=== PATIENT | female | born 1990 | race Caucasian/White ===

== ENCOUNTER 2023-09-19 18:20 | Emergency (ER) | payer MEDICAID, SELFPAY ==
--- NOTE | ~2023-09-19 | CT_ITS ---
EXAMINATION: CT ABDOMEN AND PELVIS WITH CONTRAST CLINICAL INFORMATION: Left-sided abdominal pain, vomiting and diarrhea. COMPARISON: None available. TECHNIQUE: Multidetector volumetric images were obtained from the superior aspect of the liver through the pubic symphysis following administration 85 mL of Omnipaque 350 intravenous contrast. Sagittal and coronal reformatted images were obtained on the technologist's workstation. Oral contrast: No. This CT examination was performed using dose optimization techniques as appropriate, variously including the following: Automated exposure control. Adjustment of mA and/or kV according to patient size (this includes techniques or standardized protocols for targeted exams where dose is matched to indication/reason for exam; i.e. extremities or head). Use of iterative reconstruction technique. DLP: 368 mGy-cm. FINDINGS: LUNG BASES: The visualized lung bases are unremarkable. LIVER, GALLBLADDER, AND BILIARY TREE: The liver is normal in size, shape, and attenuation. No focal hepatic lesion or biliary ductal dilatation is present. The gallbladder is unremarkable with no evidence of radiopaque gallstones, gallbladder wall thickening, or obvious pericholecystic inflammatory changes. PANCREAS: Unremarkable. SPLEEN: Unremarkable. ADRENAL GLANDS: Unremarkable. KIDNEYS AND URETERS: The kidneys are normal in size, shape, and attenuation. No hydronephrosis, hydroureter, or calculi seen. No perinephric stranding. BLADDER: Unremarkable. GASTROINTESTINAL TRACT: There is diffuse mural thickening involving the entire ascending and right transverse colon, likely colitis. The left transverse and descending colon is normal. Ileocecal junction and the terminal ileum appear normal. Appendix is not seen with certainty. ABDOMINAL WALL: No significant hernia is appreciated. LYMPH NODES: Numerous lymph nodes are seen in the right ileocecal mesentery, largest measuring 8 mm on axial slice 48/3. VASCULAR: Unremarkable. PELVIC VISCERA: There is a small amount of free fluid in the pelvis. There are multiple left ovarian cysts, largest measuring 2.3 x 2.7 cm, axial slice 59/3. The uterus is anteverted and appears unremarkable. There is a small right ovarian cyst measuring 1.5 x 1.8 cm. OSSEOUS STRUCTURES: Unremarkable. CT/CT abdomen pelvis w IV con IMPRESSION: 1. Diffuse mural thickening ascending and right transverse colon suggestive of colitis. Appendix is not seen. No bowel obstruction seen. 2. Bilateral ovarian cysts. 3. Small amount of free fluid in the cul-de-sac. Fleischner guidelines were followed.
[2023-09-19 18:27] VITALS: BP 140/90; PULSE 70; O2SAT 98
[2023-09-19 18:32] VITALS: BMI 23.4
[2023-09-19 18:38] VITALS: BP 127/65; PULSE 75; RESP 24; O2SAT 100
[2023-09-19 19:00] LABS: MANUAL DIFF FLAG NO
[2023-09-19 19:02] LABS: Basophils Percent Auto 0.1 % (0-2); Eosinophils Absolute Auto 0.2 X10*3/uL (0.0-0.4); Eosinophils Percent Auto 2.4 % (0-4); Hematocrit 40.3 % (37.0-47.0); Hemoglobin 14.1 g/dl (12.0-16.0); Imm Gran Abs Auto 0.02 X10*3/uL (0.00-0.03); Imm Gran Pct Auto 0.3 % (0.0-0.4); Lymphocytes Absolute Auto 1.5 X10*3/uL (1.2-4.9); Mean Corpuscular Hemoglobin 32.6 pg (27.0-33.0); Mean Corpuscular Volume 93.3 fL (80.0-98.0); Mean Platelet Volume 10.5 fL (9.4-12.3); Monocytes Absolute Auto 0.5 X10*3/uL (0.1-1.2); Monocytes Percent Auto 6.5 % (2-11); Neutrophils Absolute Auto 4.8 x10*3/uL (2.0-8.3); Neutrophils Percent Auto 69.7 % (45-73); Platelet Count 257 X10*3/uL (160-400); Red Blood Count 4.32 X10*6/uL (4.20-5.50); Red Cell Distribution Width 11.7 % (11.0-16.0)
--- NOTE | 2023-09-19 19:16 | ED.ABDPAIN ---
HPI - Abdominal Pain General Chief Complaint: Abdominal Pain Stated Complaint: ABD pain Time Seen by Provider: 09/19/23 19:09 Source: patient Mode of arrival: EMS Limitations: no limitations History of Present Illness HPI narrative: 33 yo female with no sig PMH no surgeries developed L sided abdominal pain with n/v/d no fevers starting at work yesterday. She notes this has never happened before. no travel, food exposures or sick contacts. MD elicited complaint: abdominal pain Pertinent past history: none Onset (ago): day(s) (1) Pain Consistency: constant Location: LUQ Severity: severe Quality: stabbing Radiation: none Migration to: no migration Exacerbating factors: movement Relieving factors: nothing Associated symptoms: nausea, vomiting and diarrhea Related Data Allergies Allergy/AdvReac Type Severity Reaction Status Date / Time No Known Allergies Allergy Verified 09/19/23 18:34 Review of Systems Review of Systems Constitutional : No Weight loss, No Fever, No Chills ENT/Mouth : No sore throat, No Rhinorrhea Eyes: No Swelling, No Redness Cardiovascular : No Chest Pain, No SOB, NoEdema Respiratory : No Cough, No Sputum, No Wheezing Gastrointestinal : Positive Nausea, Positive Vomiting, positive Diarrhea, positive abdominal Pain, No Hematochezia, No Melena Genitourinary : No Dysuria, No Urinary Frequency, No Hematuria, No Urgency Musculoskeletal : No joint pain, No Myalgias, No Joint Swelling Skin : No Skin Lesions, No rash Neuro : No Weakness, No Numbness, No Dizziness, No Headache Psych : No Anxiety/Panic, No Depression Heme/Lymph: No Bruising, No Lymphadenopathy Endocrine : No Polyuria, No Polydipsia All other systems reviewed and are negative. [facility] Past Medical History Medical History No pertinent past medical history Social History Social History (Updated 09/19/23 @ 19:31 by Sariah Rocha DO) Patient Tobacco Use Status: Never used Tobacco Smoked in Last 30 Days: No Use of substances other than those prescribed or required for medical reasons: Yes Substance Use Type: Marijuana Advance Directives: No Physical Exam ED Vital Signs: Vital Signs - 24 hr 09/19/23 18:38 09/19/23 20:54 Temperature 97.8 F Pulse Rate 75 76 Respiratory Rate 24 H 16 Blood Pressure 127/65 Pulse Oximetry 100 99 Oxygen Delivery Method Room Air Room Air BMI result Body Mass Index 23.4 Appearance: Alert. Oriented X3. anxious in pain mild acute distress. Eyes: Pupils equal, round and reactive to light. ENT: Pharynx normal. Neck: Normal inspection. Neck supple. CVS: Normal heart rate and rhythm. Pulses normal. Respiratory: No respiratory distress. Breath sounds normal. Abdomen: Soft and moderate ttp in LUQ and L flank Skin: Skin warm and dry. Normal skin color. Normal skin turgor. Extremities: No lower extremity edema. Neuro: Oriented X 3. No motor deficit. No sensory deficit. Course Course Course Narrative: signed out to Dr. Ames pending CT scan Medical Decision Making Medical Decision Making MDM Narrative: 33 yo female with no medical or surgical history here with LUQ pain and L flank pain with n/v/d that is severe at this time she denies risk factors and has never had this before. She does smoke THC. Will need basic labs, CT scan for renal colic, mass, colitis. IV toradol/morphine for pain. Differential Diagnosis Differential Diagnoses: The differential diagnosis associated with the presentation includes gastritis, renal colic, colitis, viral infection, ovarian cyst, THC induced symptoms Admission/Observation Consideration of admission/observation: Escalation of care including admission/observation considered Lab Data [facility] Lab Attestation statement: I reviewed the patient's lab results. 09/19/23 18:56 09/19/23 18:56 Labs: Lab Results 09/19/23 09/19/23 Range/Units 18:56 20:51 WBC 7.0 (4.8-10.8) X10*3/uL RBC 4.32 (4.20-5.50) X10*6/uL Hgb 14.1 (12.0-16.0) g/dl Hct 40.3 (37.0-47.0) % MCV 93.3 (80.0-98.0) fL MCH 32.6 (27.0-33.0) pg MCHC 35.0 (31.0-35.0) g/dl RDW 11.7 (11.0-16.0) % Plt Count 257 (160-400) X10*3/uL MPV 10.5 (9.4-12.3) fL Immature Gran % (Auto) 0.3 (0.0-0.4) % Neut % (Auto) 69.7 (45-73) % Lymph % (Auto) 21.0 (20-40) % [place] % (Auto) 6.5 (2-11) % Eos % (Auto) 2.4 (0-4) % Baso % (Auto) 0.1 (0-2) % Lymph # (Auto) 1.5 (1.2-4.9) X10*3/uL [place] # (Auto) 0.5 (0.1-1.2) X10*3/uL Eos # (Auto) 0.2 (0.0-0.4) X10*3/uL Baso # (Auto) 0.0 (0.0-0.2) X10*3/uL Abs Immat Gran (auto) 0.02 (0.00-0.03) X10*3/uL Absolute Neuts (auto) 4.8 (2.0-8.3) x10*3/uL Absolute Nucleated RBC 0.000 (0.0-0.012) X10*3/uL Nucleated RBC % (auto) 0.0 (0.0-0.2) /100WBC Sodium 139 (135-145) mmol/L Potassium 3.6 (3.3-5.1) mmol/L Chloride 109 H (96-108) mmol/L Carbon Dioxide 19 L (22-29) mmol/L Anion Gap 15 (12-20) BUN 7 L (9-16) mg/dL Creatinine 0.76 (0.5-1.4) mg/dL Estim Creat Clear Calc 88.7 Estimated GFR > 60 Random Glucose 114 (60-115) mg/dL Calcium 9.4 (8.4-10.2) mg/dL Total Bilirubin 0.5 (0.0-1.0) mg/dL Direct Bilirubin 0.1 (0.0-0.5) mg/dL AST 20 (5-31) U/L ALT 13 (0-31) U/L Alkaline Phosphatase 71 (39-117) U/L Total Protein 7.7 (6.5-8.0) g/dL Albumin 3.9 (3.5-5.0) g/dL Lipase 17 (8-78) U/L Urine Color Yellow Urine Appearance Clear Urine pH >= 9.0 (5.0-9.0) Ur Specific Serafina 1.015 (1.005-1.025) Urine Protein Trace (Neg-Trace) mg/dL Urine Glucose (UA) Negative (Negative) mg/dL Urine Ketones 15 (Negative) mg/dL Urine Blood Negative (Negative) Urine Nitrite Negative (Negative) Ur Leukocyte Esterase Negative (Negative) Urine Test NEGATIVE (NEGATIVE) Urine Opiates Screen POSITIVE H (Not Detect) Urine Fentanyl Screen Not Detected (Not Detect) Ur Barbiturates Screen Not Detected (Not Detect) Ur Phencyclidine Scrn Not Detected (Not Detect) Ur Amphetamines Screen Not Detected (Not Detect) U Benzodiazepines Scrn Not Detected (Not Detect) Urine Cocaine Screen Not Detected (Not Detect) U Marijuana (THC) Screen POSITIVE H (Not Detect) Independent Interpretation I performed an independent interpretation of an: CT Scan Radiology Impression Discussion of test interpretation with radiology: I have reviewed the radiologist's reading. Independent Historian Clinical information obtained from an independent historian. History obtained from or confirmed by: EMS Medications Administered Discontinued Medications Generic Name Dose Route Start Last Admin Trade Name Freq PRN Reason Stop Dose Admin Sodium Chloride 1,000 mls @ 999 mls/hr 09/19/23 19:30 09/19/23 20:38 Ns IV 09/19/23 20:30 Infused .Q1H1M LAURA Infusion Ketorolac Tromethamine 15 mg 09/19/23 19:26 09/19/23 19:34 Ketorolac Tromethamine 15 Mg/Ml Vial IVPUSH 09/19/23 19:27 15 mg ONCE ONE Administration Morphine Sulfate 4 mg 09/19/23 19:26 09/19/23 19:33 Morphine Sulfate 4 Mg/Ml Cartridge IVPUSH 09/19/23 19:27 4 mg ONCE ONE Administration Protocol Ondansetron HCl 4 mg 09/19/23 19:26 09/19/23 19:34 Ondansetron Hcl 4 Mg/2 Ml Vial IVPUSH 09/19/23 19:27 4 mg ONCE ONE Administration Discharge Plan Discharge Clinical Impression: Abdominal pain Qualifiers: Abdominal location: left upper quadrant Qualified Code(s): R10.12 - Left upper quadrant pain Patient Disposition: Still a Patient
[2023-09-19 19:18] LABS: Alanine Aminotransferase 13 U/L (0-31); Albumin Level 3.9 g/dL (3.5-5.0); Alkaline Phosphatase 71 U/L (39-117); Anion Gap 15 (12-20); Aspartate Amino Transferase 20 U/L (5-31); Bilirubin Direct 0.1 mg/dL (0.0-0.5); Bilirubin Total 0.5 mg/dL (0.0-1.0); Blood Urea Nitrogen 7 mg/dL (9-16); Calcium 9.4 mg/dL (8.4-10.2); Carbon Dioxide 19 mmol/L (22-29); Chloride 109 mmol/L (96-108); Creatinine Clr Calc Pharmacy 88.7; Estimated Glomerular Filt Rate > 60; Glucose Random 114 mg/dL (60-115); Lipase 17 U/L (8-78); Potassium 3.6 mmol/L (3.3-5.1); Sodium 139 mmol/L (135-145); Total Protein 7.7 g/dL (6.5-8.0)
[2023-09-19] MEDS: Morphine Sulfate 4 MG/ML CARTRIDGE IVPUSH (19:33)
[2023-09-19] MEDS: ondansetron HCL 4 MG/2 ML VIAL IVPUSH (19:34)
[2023-09-19] MEDS: Ketorolac Tromethamine 15 MG/ML VIAL IVPUSH (19:34)
[2023-09-19] MEDS: 0.9 % Sodium Chloride 1,000 ML 999 ML IV (19:34)
--- NOTE | 2023-09-19 19:36 | PC.NURSE ---
AXOX4; REPORTING LUQ ABD PAIN ONSET LAST NIGHT WORSE TODAY. PT REPORTS N/V/D; UNABLE TO ASSESS ABD PT TENDER/GUARDING. DR. CONN TO BEDSIDE FOR PRIMARY EVAL. IV ESTABLISHED BY PREVIOUS RN. IVF INFUSING PT MEDICATED PER MAR. VSS. PT TEARFUL. AWAITING CT SCAN. CALL [facility] WITHIN REACH.
--- NOTE | 2023-09-19 20:39 | PC.NURSE ---
pt states pain improved with medication. awaiting ct scan. call hall within reach.
[2023-09-19 20:54] VITALS: PULSE 76; RESP 16; TEMP 36.6; O2SAT 99
[2023-09-19 20:59] LABS: Appearance Urine Clear; Color Urine Yellow; Glucose Urine UA Negative (Negative); Leukocyte Esterase Urine Negative (Negative); Nitrite Urine Negative (Negative); PH >= 9.0 (5.0-9.0); Specific Gravity - Urine 1.015 (1.005-1.025); Urine Blood Negative (Negative); Urine Ketones 15 mg/dL (Negative); Urine Protein Trace mg/dL (Neg-Trace)
[2023-09-19 21:00] LABS: UPreg QC Valid YES; Urine Pregnancy NEGATIVE (NEGATIVE)
[2023-09-19 21:05] LABS: Amphetamine Screen Urine Not Detected (Not Detect); Barbiturates, Urine Not Detected (Not Detect); Benzodiazepines Screen Urine Not Detected (Not Detect); Cannabinoid Screen Urine POSITIVE (Not Detect); Cocaine Screen Urine Not Detected (Not Detect); Fentanyl, urine Not Detected (Not Detect); Opiate Screen Urine POSITIVE (Not Detect); Phencyclidine Screen Urine Not Detected (Not Detect)
[2023-09-19] MEDS: iohexoL 350 MG/ML 100 ML INFUS..BTL IV (21:20)
[2023-09-19 22:27] VITALS: BP 97/51; PULSE 56; RESP 15; TEMP 36.7; O2SAT 97
[2023-09-19] MEDS: levoFLOXacin 500 MG TABLET PO (23:11)
[2023-09-19] MEDS: metroNIDAZOLE 500 MG TABLET PO (23:11)
== END 2023-09-19 23:17 | disposition home or self-care (01) ==
PROVIDERS: Emergency Medicine; Emergency Provider Emergency Medicine
DX: R10.12 Left upper quadrant pain (principal); R11.2 Nausea with vomiting, unspecified; N83.202 Unspecified ovarian cyst, left side; N83.201 Unspecified ovarian cyst, right side
CPT/HCPCS: 36415; 74177; 80048; 80076; 80307; 81003; 81025; 83690; 85025; 96361; 96374; 96375; 99284; 99285; J1885; J2270; J2405; Q9967

== ENCOUNTER 2024-05-24 18:22 | Emergency (ER) | payer OTHER, SELFPAY ==
[2024-05-24 18:26] VITALS: BP 104/70; PULSE 84; RESP 16; TEMP 36.4; O2SAT 98; BMI 21.3
--- NOTE | 2024-05-24 18:29 | ED_ITS ---
HPI - General Adult General Chief complaint: Wound/Laceration Stated complaint: needs wound rewrapped, work injury Time Seen by Provider: 05/24/24 18:31 Source: patient Mode of arrival: ambulatory Limitations: no limitations History of Present Illness ED Provider: Ana Ortega PA-C HPI narrative: Patient is a 34 year old assigned female at with a history of a right middle finger injury presenting to the emergency department today for splint reapplication. Patient states that she was seen at [facility] and diagnosed with a broken right 3rd digit. Patient states that she was placed in a finger splint and told to follow up with a hand surgeon. Patient states that as she was driving home from [facility], the splint fell off. Patient states that she would like help getting the splint put back on. Patient denies any dizziness, lightheadedness, abdominal pain, nausea, vomiting, fever, chills, blurry vision, double vision, loss of vision, chest pain, difficulty breathing, shortness of breath, back pain, night sweats, pain with urination, increased urinary frequency, increased urinary urgency, blood in her urine or stool, syncope or a near syncopal episode, bowel incontinence, bladder incontinence, or any other complaints at this time. Severity: mild Relieving factors: none Exacerbating factors: none Associated symptoms: denies other symptoms Treatments prior to arrival: other (evaluated and splinted at [facility]) Related Data Previous Rx's ?Medication ?Instructions ?Recorded hyoscyamine sulfate 0.125 mg tablet 0.125 mg PO QID PRN dyspepsia #10 09/19/23 tabs levofloxacin 500 mg tablet 500 mg PO DAILY #6 tabs 09/19/23 metronidazole 500 mg tablet 500 mg PO BID #13 tabs 09/19/23 Allergies Allergy/AdvReac Type Severity Reaction Status Date / Time No Known Allergies Allergy Verified 05/24/24 18:28 Review of Systems Constitutional: Constitutional: Reports no additional constitutional complaints, Denies chills, Denies fever(s) and Denies night sweats Eyes: Eyes: Reports no additional eye complaints, Denies blurry vision, Denies change in vision, Denies diplopia, Denies eye discharge, Denies loss of vision and Denies eye pain ENT: Denies dizziness Cardiovascular: Cardiovascular: Reports no additional cardiovascular complaints, Denies chest pain, Denies lightheadedness, Denies Loss of Consciousness and Denies dyspnea Respiratory: Respiratory: Reports no additional respiratory complaints and Denies dyspnea Gastrointestinal: Gastrointestinal: Reports no additional gastrointestinal complaints, Denies abdominal pain, Denies melena, Denies hematochezia, Denies change in bowel habits and Denies change in stool character Genitourinary: Genitourinary: Denies hematuria, Denies urinary frequency, Denies dysuria, Denies urinary incontinence, Denies urinary hesitancy and Denies urinary urgency Musculoskeletal: Musculoskeletal: Reports no additional musculoskeletal com plaints, Denies numbness and Denies tingling Comments: right 3rd digit injury Neurologic: Denies dizziness, Denies loss of vision, Denies numbness and Denies tingling Psychiatric: Psychiatric: Reports no additional psychiatric complaints Endocrine: Endocrine: Reports no additional endocrine complaints Hematologic/Lymphatic: Hematologic/Lymphatic: Reports no additional hematologic/lymphatic complaints Allergic/Immunologic: Allergic/Immunologic: Reports no additional allergic/immunologic complaints PMFSH Past Medical History Attestation statement: The following information was validated with the patient. Source: old records reviewed and nursing notes reviewed Medical History No pertinent past medical history Social History Social History Patient Tobacco Use Status: Never used Tobacco Substance Use Type: Marijuana Advance Directives: No Advance Directives Information Provided: No Do you have a plan to hurt others: No Plan Physical Exam ED Vital Signs: Vital Signs - 24 hr 05/24/24 18:26 Temperature 97.5 F Pulse Rate 84 Respiratory Rate 16 Blood Pressure 104/70 Pulse Oximetry 98 Oxygen Delivery Method Room Air BMI result Body Mass Index 21.3 Const General: cooperative, no acute distress, alert and awake Nutritional Appearance: well nourished Orientation/consciousness: patient oriented x3 Limitations: no limitations HENMT Head: Yes normal to inspection and Yes atraumatic Ears: hearing grossly normal bilaterally and external ears normal General nose exam: Normal external nose present, no nasal discharge noted and no epistaxis Face and sinus: Yes normal facial exam, No abrasion and No laceration Mouth: Normal oral and palatal mucosa present, no drooling and no muffled voice Eyes General: appearance normal, both eyes and all related structures Periorbital: periorbital findings normal Eyelids: Yes eyelids normal Conjunctivae: conjunctivae normal Pupils: Equal, round and reactive pupils present EOM: EOMs intact bilaterally Neck Neck: Yes normal visual inspection, Yes full ROM and Yes no lymphadenopathy Chest Chest palpation & inspection: normal inspection of the chest Resp Effort & Inspection: normal respiratory effort and able to speak in complete sentences GI Inspection: Yes normal to inspection Neuro General: patient oriented x3 and moves all extremities Cranial nerves: Yes Equal, round and reactive pupils present Cognition (Neuro): normal cognition Motor exam (neuro): 5/5 motor strength present throughout Sensory Exam: Normal double simultaneous stimulation for sensation Coordination: [id number] test normal Extrem Other: crush injury present to the right 3rd digit - no active bleeding General: Yes full ROM and Yes capillary refill normal Psych Appearance: grossly normal Mental Status: mental status grossly normal Affect: normal affect Attitude: cooperative Thought process: Normal thought process present Thought content: Normal thought content present Insight: Good insight present (Psych) Procedures Orthopedic Splinting/Casting Injury #1: Side: right Upper Extremity Injury Location: finger (3rd) Upper Extremity Immobilizer: aluminum form splint Medical Decision Making Medical Decision Making MDM Narrative: Patient is a 34 year old assigned female at with a history of right 3rd digit injury presenting to the emergency department today for splint reapplication. Patient's physical exam was as noted in the physical exam portion of this note. I explained my physical exam findings to the patient. I answered all questions asked by the patient. I re-dressed the patient's right middle finger wound with non-adherent gauze and re-splinted the patient's finger with her provided foam finger splint, providing additional stabilization with gauze roll. I stressed the importance of the patient taking her medication, including her ABX, as directed (either prescribed or as the over the counter packaging recommends). I stressed the importance of the patient following up with her primary care provider and the hand surgeon. I stressed the importance of the patient returning to the emergency department immediately if her symptoms were to worsen or if she were to develop any dizziness, shortness of breath, difficulty breathing, chest pain, blurry vision, loss of vision, nausea, vomiting, abdominal pain, fever, chills, back pain, or any other complaints. Patient verbalized agreement and understanding with this treatment plan and discharge. Differential Diagnosis Differential Diagnoses: The differential diagnosis associated with the presentation includes Right 3rd digit fracture Right 3rd digit injury Admission/Observation Consideration of admission/observation: Escalation of care including admission/observation considered Patient would have been admitted to the hospital had her clinical presentation warranted hospital admission. Discharge Plan Discharge Clinical Impression: Finger fracture, Aftercare for cast or splint check or change Patient Disposition: Home, Self-Care Instructions: Finger Fracture (ED) Additional Instructions: Keep your splint in place until you see the hand surgeon. Follow up with your primary care provider and the hand surgeon as scheduled. Return to the emergency department immediately if your symptoms worsen or if you develop any dizziness, shortness of breath, difficulty breathing, chest pain, blurry vision, loss of vision, nausea, vomiting, abdominal pain, fever, chills, back pain, or any other complaints. Prescriptions: No Action levofloxacin 500 mg tablet 500 mg PO DAILY Qty: 6 0RF metronidazole 500 mg tablet 500 mg PO BID Qty: 13 0RF hyoscyamine sulfate 0.125 mg tablet 0.125 mg PO QID PRN (Reason: dyspepsia) Qty: 10 0RF Discharge Date/Time: 05/24/24 18:47 Print Language: Swedish
== END 2024-05-24 18:47 | disposition home or self-care (01) ==
LOC: HO.ED 18:41
PROVIDERS: Emergency Provider Internal Medicine
DX: S62.602A Fracture of unspecified phalanx of right middle finger, initial encounter for closed fracture (principal); Y33.XXXA Other specified events, undetermined intent, initial encounter; Y93.9 Activity, unspecified; Y92.9 Unspecified place or not applicable; Y99.0 Civilian activity done for income or pay
CPT/HCPCS: 99281